=== PATIENT | female | born 1985 | race Caucasian/White ===

== ENCOUNTER 2016-10-13 16:40 | Emergency (ER) | payer OTHER ==
[~2016-10-13] VITALS: Ht 165.1 cm; Wt 68.0 kg
[~2016-10-13 16:40] MED LIST: LORTA5 PO; PROM25TA5 PO; Z.0.NO CURRENT MEDS
[2016-10-13 16:42] VITALS: BP 116/68; PULSE 66; RESP 16; TEMP 97.9; O2SAT 100
--- NOTE | 2016-10-13 17:13 | PD ---
Physical Exam Date Seen by Provider: Oct 13, 2016 Time Seen by Provider: 17:09 Narrative Patient seen in Triage with 3 days history of lower abdominal cramping. Patient denies Nausea/Vomitting/ or urinary symptoms. Last LMP 09/27/2016. Vital signs stable. Waiting room assignment. Data Data Last Documented VS Vital Signs Date Time Temp Pulse Resp B/P Pulse Ox O2 Delivery O2 Flow Rate FiO2 10/13/16 16:42 97.9 66 16 116/68 100 Room Air [facility] Medical Record Reviewed: Yes Supervised Visit with IFEOMA: Yes Condition: Stable Laci Munroe Oct 13, 2016 17:12
[2016-10-13 19:32] VITALS: BP 107/55; PULSE 58; RESP 16; O2SAT 100
[2016-10-13 20:08] LABS: AUTOMATED NEUTROPHIL # 5.2 TH/MM3 (1.8-7.7); BASOPHIL % 0.6 % (0.0-2.0); EOSINOPHIL # 0.3 TH/MM3 (0-0.4); EOSINOPHIL % 2.8 % (0.0-4.0); HEMATOCRIT 39.5 % (35.0-46.0); HEMO FLAGS DIFF FINAL; LYMPH % 29.9 % (9.0-44.0); LYMPHOCYTE # 2.6 TH/MM3 (1.0-4.8); MEAN CELL VOLUME 92.8 FL (80.0-100.0); MEAN CORPUSCULAR HEMOGLOBIN 31.3 PG (27.0-34.0); MEAN CORPUSCULAR HGB CONC 33.7 % (32.0-36.0); MONO % 8.1 % (0.0-8.0); NEUT % 58.6 % (16.0-70.0); PLATELET COUNT 168 TH/MM3 (150-450); RED BLOOD COUNT 4.25 MIL/MM3 (4.00-5.30); RED CELL DISTRIBUTION WIDTH 13.8 % (11.6-17.2); WHITE BLOOD COUNT 8.8 TH/MM3 (4.0-11.0)
[2016-10-13 20:13] LABS: BLOOD, URINE NEG (NEG); COMMENT (UR) CULT NOT INDICATED; CULTURE IF INDICATED CULT NOT INDICATED; GLUCOSE,URINE NEG (NEG); KETONE, URINE 10 mg/dL (NEG); MUCUS URINE FEW /lpf (OCC); NITRITE,URINE NEG (NEG); PH, URINE 5.5 (5.0-8.5); URINE COLOR YELLOW (YELLW/STRAW)
[2016-10-13 20:19] LABS: ANION GAP 7 MEQ/L (5-15); AST (GOT) 13 U/L (15-37); BICARBONATE 25.9 MEQ/L (21.0-32.0); BLOOD UREA NITROGEN 11 MG/DL (7-18); CHLORIDE 106 MEQ/L (98-107); GLOMERULAR FILTRATION RATE 91 ML/MIN (>89); POTASSIUM 3.7 MEQ/L (3.5-5.1); SODIUM (NA) 139 MEQ/L (136-145)
[2016-10-13 20:23] LABS: ALKALINE PHOSPHATASE 56 U/L (45-117); ALT (GPT) 18 U/L (10-53); TOTAL BILIRUBIN ADULT 0.4 MG/DL (0.2-1.0)
--- NOTE | 2016-10-13 21:01 | PD ---
HPI Chief Complaint: Abdominal Pain Time Seen by Provider: 21:01 Travel History International Travel<30 days: No Contact w/Intl Traveler<30days: No Traveled to known affect area: No History of Present Illness HPI 31-year-old female presents to the emergency department for evaluation of lower abdominal pain for 3 days. The patient states she's had crampy abdominal pain just below her umbilicus with bloating. States that she really has more bloating rather than pain. Denies any fever, chills, nausea, vomiting, diarrhea , constipation, bloody stool, dysuria, vaginal discharge. Denies any prior abdominal surgeries. Denies , last menstrual period 2 weeks ago. No aggravating or alleviating factors. No other complaints. PFSH Past Medical History Diabetes: No Diminished Hearing: No Hepatitis: No Hiatal Hernia: No Medical other: Yes (HAD SEIZURE AT 2YEARS OLD) Immunizations Current: No Seizures: Yes (AT AGE 2) Thyroid Disease: Yes (ABNORMAL RESULTS RECENTLY) Tetanus Vaccination: Unknown Influenza Vaccination: No ?: Not LMP: 09/27/16 Tubal Ligation: Yes (ABLASION) Past Surgical History Gynecologic Surgery: Yes Pacemaker: No Social History Alcohol Use: Yes (OCC) Tobacco Use: No Substance Use: No Allergies-Medications (Allergen,Severity, Reaction): Uncoded Allergies: NICKEL (Allergy, Severe, RASH, ITCHING, 05/14/12) Reported Meds & Prescriptions Reported Meds & Active Scripts Active No Active Prescriptions or Reported Medications Review of Systems Except as stated in HPI: all other systems reviewed are Neg Physical Exam Narrative GENERAL: Well-nourished and well-developed pleasant patient in no acute distress who is nontoxic appearing. SKIN: Warm and dry. HEAD: Normocephalic and atraumatic. EYES: No injection, drainage, or hyphema noted. PERRLA. EOMI. ENT: No nasal drainage noted. Oropharynx is clear. NECK: Supple and the trachea is midline. CARDIOVASCULAR: Regular rate and rhythm. RESPIRATORY: Breath sounds are equal bilaterally with no accessory muscle use, wheezing, rhonchi, or crackles. GASTROINTESTINAL: Abdomen is soft, non-tender, and nondistended. No rebound tenderness or guarding. Negative McBurney's point. Negative Mccarthy sign. MUSCULOSKELETAL: No obvious deformities, swelling, cyanosis, or ecchymosis is present throughout the upper and lower extremities. Patient has full range of motion without any signs of neurovascular compromise. NEUROLOGICAL: Awake, alert, and oriented. Normal speech and gait. Cranial nerves are grossly intact. Data Data Last Documented VS Vital Signs Date Time Temp Pulse Resp B/P Pulse Ox O2 Delivery O2 Flow Rate FiO2 10/13/16 19:32 58 16 107/55 100 Room Air 10/13/16 16:42 97.9 Orders Complete Blood Count With Diff (10/13/16 19:49) Comprehensive Metabolic Panel (10/13/16 19:49) Urinalysis - C+S If Indicated (10/13/16 19:49) Ed Urine Pregnancytest Poc (10/13/16 19:49) Dicyclomine (Bentyl) (10/13/16 21:15) Labs Laboratory Tests Test 10/13/16 19:55 White Blood Count 8.8 TH/MM3 Red Blood Count 4.25 MIL/MM3 Hemoglobin 13.3 GM/DL Hematocrit 39.5 % Mean Corpuscular Volume 92.8 FL Mean Corpuscular Hemoglobin 31.3 PG Mean Corpuscular Hemoglobin 33.7 % Concent Red Cell Distribution Width 13.8 % Platelet Count 168 TH/MM3 Mean Platelet Volume 7.7 FL Neutrophils (%) (Auto) 58.6 % Lymphocytes (%) (Auto) 29.9 % Monocytes (%) (Auto) 8.1 % Eosinophils (%) (Auto) 2.8 % Basophils (%) (Auto) 0.6 % Neutrophils # (Auto) 5.2 TH/MM3 Lymphocytes # (Auto) 2.6 TH/MM3 Monocytes # (Auto) 0.7 TH/MM3 Eosinophils # (Auto) 0.3 TH/MM3 Basophils # (Auto) 0.0 TH/MM3 CBC Comment DIFF FINAL Differential Comment Urine Color YELLOW Urine Turbidity CLEAR Urine pH 5.5 Urine Specific [place] 1.016 Urine Protein NEG mg/dL Urine Glucose (UA) NEG mg/dL Urine Ketones 10 mg/dL Urine Occult Blood NEG Urine Nitrite NEG Urine Bilirubin NEG Urine Urobilinogen LESS THAN 2.0 MG/DL Urine Leukocyte Esterase NEG Urine RBC 1 /hpf Urine WBC 1 /hpf Urine Mucus FEW /lpf Microscopic Urinalysis Comment CULT NOT INDICATED Sodium Level 139 MEQ/L Potassium Level 3.7 MEQ/L Chloride Level 106 MEQ/L Carbon Dioxide Level 25.9 MEQ/L Anion Gap 7 MEQ/L Blood Urea Nitrogen 11 MG/DL Creatinine 0.74 MG/DL Estimat Glomerular Filtration 91 ML/MIN Rate Random Glucose 94 MG/DL Calcium Level 8.6 MG/DL Total Bilirubin 0.4 MG/DL Aspartate Amino Transf 13 U/L (AST/SGOT) Alanine Aminotransferase 18 U/L (ALT/SGPT) Alkaline Phosphatase 56 U/L Total Protein 7.0 GM/DL Albumin 3.6 GM/DL [facility] Medical Decision Making Medical Screen Exam Complete: Yes Emergency Medical Condition: Yes Differential Diagnosis Gastroenteritis versus colitis versus UTI Narrative Course 31-year-old female is a [facility] emergency room for evaluation of low abdominal bloating for 3 days. Patient is afebrile, vital signs are stable. Physical examination is unremarkable. Abdominal examination is benign. IV access is obtained, labs were drawn and sent. Patient is placed on cardiac telemetry and pulse oximetry monitoring. ED urine test is negative. CBC is unremarkable. CMP is unremarkable. Urinalysis unremarkable. Labs are all reassuring. Patient has remained stable and without complaint while here in the ED. She is given Bentyl 20 mg orally. Advised to follow up as an outpatient with her PCP if symptoms persist. Instructed to return to the emergency department for worsening of symptoms such as vomiting, diarrhea, fever. Patient verbalizes understanding and agreement with treatment plan. Diagnosis Primary Impression: Abdominal pain Qualified Code: R10.30 - Lower abdominal pain Referrals: Primary Care Physician Patient Instructions: Abdominal Pain (ED), General Instructions Additional Instructions: Take [id number] Tylenol or ibuprofen as traction on the box as needed for pain. Follow-up with your Primary Care Physician. Return to the ED for any acute worsening of symptoms. Med/Other Pt SpecificInfo: No Change to Meds Scripts No Active Prescriptions or Reported Meds Disposition: DISCHARGE HOME Condition: Stable Grisel Starr Oct 13, 2016 21:01
[2016-10-13] MEDS ORDERED: DICYCLOMINE HCL 10 MG CAP PO ONE (21:15)
[2016-10-13 21:53] VITALS: BP 135/77
== END 2016-10-13 22:04 | disposition home or self-care (01) ==
LOC: NEPC 16:40
DX: R10.30 Lower abdominal pain, unspecified (principal); R14.0 Abdominal distension (gaseous); E07.9 Disorder of thyroid, unspecified
CPT/HCPCS: 80053; 81001; 84703; 85025; 99284